=== PATIENT | male | born 1960 | race Caucasian/White ===

== ENCOUNTER 2019-10-27 17:00 | Inpatient (IN) | payer OTHER ==
[~2019-10-27] VITALS: Ht 180.3 cm; Wt 56.2 kg
[2019-10-27 17:03] VITALS: BP 118/68
--- NOTE | 2019-10-27 17:03 | NUR ---
Patient BIBA BLS, transferred to bed 7. RN evaluating patient at bedside.
[2019-10-27] MEDS ORDERED: DIAZ10TA7 PO (17:33)
[2019-10-27] MEDS ORDERED: EREN70AU SQ (17:33)
[2019-10-27] MEDS ORDERED: OXYC30TE PO (17:33)
[2019-10-27] MEDS ORDERED: ONDA4TAB PO (17:33)
[2019-10-27] MEDS ORDERED: EPIN0.3S IJ (17:33)
[2019-10-27] MEDS ORDERED: NALO25TA PO (17:33)
[2019-10-27] MEDS ORDERED: MEGE40SU1 PO (17:33)
[2019-10-27] MEDS ORDERED: LACO150T PO (17:33)
[2019-10-27] MEDS ORDERED: [UNRECOGNIZED DRUG - CODE] PO (17:33)
[2019-10-27] MEDS ORDERED: DOCU-299 PO (17:33)
[2019-10-27] MEDS ORDERED: LAM25 PO ×2 (17:33→21:02)
[2019-10-27] MEDS ORDERED: DEXL60EC PO (17:33)
[2019-10-27] MEDS ORDERED: NAPH15SO OP (17:33)
[2019-10-27] MEDS ORDERED: VITA1TAB44 PO (17:33)
[2019-10-27] MEDS ORDERED: LUBI24SG4 PO (17:33)
[2019-10-27] MEDS ORDERED: ACET-5636 PO (17:33)
[2019-10-27] MEDS ORDERED: DULO30EC PO ×2 (17:33)
[2019-10-27] MEDS ORDERED: MODA100T29 PO (17:33)
[2019-10-27] MEDS ORDERED: FIO PO (17:33)
--- NOTE | 2019-10-27 17:34 | NUR ---
brought in by ems from [facility] pt c/o frontal lobe headache with dizziness and nausea ; denies recent injury full clear speech, moving all extremities equally, no facial asymmetry noted
[2019-10-27] MEDS ORDERED: ONDANSETRON 4 MG/2 ML VIAL IVP ONE (18:00)
[2019-10-27] MEDS ORDERED: ASPIRIN 81 MG TAB.CHEW PO ONE (18:00)
[2019-10-27] MEDS ORDERED: fentaNYL 0.05 MG/ML VIAL IVP ONE (18:00)
[2019-10-27 18:41] LABS: BASOPHILS % (AUTO) 0.2 % (0.0-2.0); EOSINOPHILS # (AUTO) 0.1 K/uL (0-0.4); EOSINOPHILS % (AUTO) 1.3 % (0.0-4.0); HEMATOCRIT 41.6 % (36-52); HEMOGLOBIN 13.8 g/dL (12.0-18.0); LYMPHOCYTES # (AUTO) 2.2 K/uL (2.0-11.5); LYMPHOCYTES % (AUTO) 28.6 % (20.5-51.1); MEAN CORPUSCULAR HEMOGLOBIN 33 pg (27-31); MEAN CORPUSCULAR HGB CONC 33 g/dL (33-37); MEAN CORPUSCULAR VOLUME 99.1 fL (80-94); MONOCYTES # (AUTO) 0.4 K/uL (0.8-1.0); MONOCYTES % (AUTO) 5.3 % (1.7-9.3); NEUTROPHILS # (AUTO) 4.9 K/uL (1.8-7.7); NEUTROPHILS % (AUTO) 64.6 % (42.2-75.2); PLATELET COUNT (AUTO) 273 K/uL (140-450); RED BLOOD CELL COUNT(AUTO) 4.19 MIL/uL (4.20-6.10); RED CELL DISTRIBUTION WIDTH 13.6 % (11.6-13.7); WHITE BLOOD COUNT (AUTO) 7.6 K/uL (4.8-10.8)
[2019-10-27 18:44] LABS: APPEARANCE,URINE CLEAR (CLEAR); BILIRUBIN,URINE NEGATIVE (NEGATIVE); BLOOD, URINE NEGATIVE (NEGATIVE); COLOR,URINE YELLOW (YELLOW); LEUKOCYTE ESTERASE ,URINE NEGATIVE (NEGATIVE); NITRITE, URINE NEGATIVE (NEGATIVE); UGLUCOSE TRACE (NEGATIVE)
--- NOTE | 2019-10-27 18:45 | NUR ---
PT REPORTING RELIEF OF PAIN RATING 7/10 NOW.
[2019-10-27 18:55] LABS: CARBON DIOXIDE 25.9 mmol/L (21-32); CREATININE 0.8 mg/dL (0.7-1.3); POTASSIUM 3.9 mmol/L (3.5-5.1)
[2019-10-27 19:01] LABS: ALBUMIN 3.6 g/dL (3.4-5.0); TOTAL BILIRUBIN 0.4 mg/dL (0.0-1.0)
[2019-10-27] MEDS ORDERED: ZOLPIDEM 5 MG TAB PO PRN (19:10)
[2019-10-27] MEDS ORDERED: APAP/BUTAL/CAFF 325/50/40 MG 1 TAB PO PRN (19:10)
[2019-10-27] MEDS ORDERED: ONDANSETRON 4 MG/2 ML VIAL IM/IVP PRN (19:10)
[2019-10-27] MEDS ORDERED: NITROGLYCERIN 0.4 MG TAB SL PRN ×2 (19:10→21:05)
[2019-10-27] MEDS ORDERED: LORazepam 2 MG/ML VIAL IM/IVP PRN (19:10)
[2019-10-27] MEDS ORDERED: DOCUSATE SODIUM 100 MG GELCAP PO PRN (19:10)
[2019-10-27] MEDS ORDERED: ACETAMINOPHEN 325 MG TAB PO PRN (19:10)
--- NOTE | 2019-10-27 19:12 | NUR ---
REPORT TO RICHAR MAYO. ALL CARE TRANSFERRED AT THIS TIME.
--- NOTE | 2019-10-27 19:39 | NUR ---
assumed care of patient. alert and oriented. states that headache is better than initial complaint. bed assigned. pt placed on archery instructor [facility]
--- NOTE | 2019-10-27 19:45 | NUR ---
facility where pt resides phoned. PRASHANT Cowart [phone] in house business affairs manager pt external family preservation caseworker Rylee Grant Pt PMD in [address] Kane Nicholson [phone]
--- NOTE | 2019-10-27 19:55 | NUR ---
Pt laying in bed, rr even and unlabored. reports 4/10 tolerable headache at this time, with improvement after meds. Temp 100.6, will endorsed to MST RN.
[2019-10-27 20:00] VITALS: BP 120/48
[2019-10-27] MEDS: NACL 0.9% 1,000 ML IV SCH (20:00)
--- NOTE | 2019-10-27 20:00 | NUR ---
Patient will be admitted to care of Dr Singleton. Admited to Tele. Will go to room 122B. Belongings list completed. Report to Jurgen MCQUEEN.
--- NOTE | 2019-10-27 20:00 | NUR ---
RECEIVED PT FROM ER NURSE. PT CAME IN [facility] AND ABLE TO AMBULATE TO [facility] BED. NO SOB NOTED ON ROOM AIR. RESPIRATION EVEN AND UNLABORED. SKIN INTACT, WARM AND DRY TO TOUCH. DX: CHEST PAIN AND CHRONIC CEPHALGIA. IV SITE IN RAC 20G, PATENT, INTACT, AND ASYMPTOMATIC. MRSA SWAB DONE, VS CHECKED, WITHIN NORMAL RANGE. BED IN LOW POSITION, CALL LIGHT WITHIN REACH.
[2019-10-27 20:21] LABS: MAGNESIUM 1.9 mg/dL (1.8-2.4); PHOSPHORUS 3.7 mg/dL (2.5-4.9); THYROID STIMULATING HORMONE 1.07 uIU/mL (0.34-3.74)
[2019-10-27 20:25] LABS: PROTHROMBIN TIME 9.9 secs (10.8-13.4)
[2019-10-27] MEDS ORDERED: FOLI0.8T PO (21:02)
[2019-10-27 21:11] LABS: BARBITURATE, URINE POS. ng/ml (NEG <=200); BENZODIAZEPINE, URINE POS. ng/mL (NEG <=200); CANNABINOID, URINE NEG. ng/mL (NEG <=50); COCAINE, URINE NEG. ng/mL (NEG <=300); OPIATE, URINE NEG. ng/mL (NEG <=2000); PHENCYCLIDINE SCREEN,URINE NEG. ng/mL (NEG <=25)
[2019-10-27] MEDS ORDERED: KETOROLAC 30 MG/ML VIAL IVP PRN (21:15)
[2019-10-27] MEDS ORDERED: ALBUTEROL SULFATE/IPRATROPIU 3 ML SOL IH PRN (21:15)
[2019-10-27] MEDS: NICOTINE TRANSD SYS 14 MG/24 HR PATCH TD SCH (21:15)
--- NOTE | 2019-10-27 21:35 | NUR ---
PT C/O HEADACHE, GIVEN TYLENOL MD ORDERED. PT TOLERATED WELL.
--- NOTE | 2019-10-27 23:55 | NUR ---
VS CHECKED, WITHIN PT'S BASELINE, WILL CONTINUE TO MONITOR.
[2019-10-28] VITALS: BP 96/50
--- NOTE | 2019-10-28 02:01 | NUR ---
PT SLEEPING IN BED. NO ACUTE DISTRESS NOTED. WILL CONTINUE TO MONITOR.
[2019-10-28 04:00] VITALS: BP 99/53
--- NOTE | 2019-10-28 04:00 | NUR ---
VS CHECKED, WITHIN PT'S BASELINE. BED IN LOW POSITION, CALL LIGHT WITHIN REACH.
[2019-10-28] MEDS ORDERED: ALBUTEROL SULFATE/IPRATROPIU 3 ML SOL IH SCH ×2 (06:00→10:48)
--- NOTE | 2019-10-28 06:40 | NUR ---
PT COUGHING OUT WITH BLOOD. REPORTED TO DR. DIAZ.
--- NOTE | 2019-10-28 07:15 | NUR ---
ENDORSED PT TO DAY SHIFT NURSE. PT IN STABLE CONDITION.
--- NOTE | 2019-10-28 07:20 | NUR ---
RECEIVED PT FROM CHILDHOOD DEVELOPMENT TEACHER NURSEOLIVER, PT IS AWAKE AND LYING ON THE BED, SIDE RAILS ARE UP AND CALL LIGHT WITHIN REACH, IV LINE ON THE RT AC G. 20 WITH NS INFUSING AT 60ML/HR, AOX4, ON ROOM AIR, DENIES PAIN AND NO SIGN OF DISTRESS NOTED. WILL CONTINUE TO MONITOR PT.
[2019-10-28 08:00] VITALS: BP 112/61
[2019-10-28 08:03] LABS: BASOPHILS % (AUTO) 0.4 % (0.0-2.0); EOSINOPHILS # (AUTO) 0.3 K/uL (0-0.4); EOSINOPHILS % (AUTO) 3.9 % (0.0-4.0); HEMATOCRIT 40.9 % (36-52); HEMOGLOBIN 13.6 g/dL (12.0-18.0); LYMPHOCYTES # (AUTO) 2.3 K/uL (2.0-11.5); LYMPHOCYTES % (AUTO) 35.1 % (20.5-51.1); MEAN CORPUSCULAR HEMOGLOBIN 33 pg (27-31); MEAN CORPUSCULAR HGB CONC 33 g/dL (33-37); MEAN CORPUSCULAR VOLUME 98.9 fL (80-94); MONOCYTES # (AUTO) 0.4 K/uL (0.8-1.0); MONOCYTES % (AUTO) 5.9 % (1.7-9.3); NEUTROPHILS # (AUTO) 3.6 K/uL (1.8-7.7); NEUTROPHILS % (AUTO) 54.7 % (42.2-75.2); PLATELET COUNT (AUTO) 256 K/uL (140-450); RED BLOOD CELL COUNT(AUTO) 4.14 MIL/uL (4.20-6.10); RED CELL DISTRIBUTION WIDTH 13.6 % (11.6-13.7); WHITE BLOOD COUNT (AUTO) 6.5 K/uL (4.8-10.8)
[2019-10-28 08:17] LABS: ANION GAP 14.9 (8-16); CREATININE 0.8 mg/dL (0.7-1.3); POTASSIUM 3.9 mmol/L (3.5-5.1)
[2019-10-28] MEDS: NICOTINE TRANSD SYS 14 MG/24 HR PATCH TD SCH (09:00)
[2019-10-28] MEDS ORDERED: LISINOPRIL 5 MG TAB PO SCH (09:00)
[2019-10-28] MEDS ORDERED: METOPROLOL 25 MG TAB PO SCH (09:00)
[2019-10-28] MEDS ORDERED: ASPIRIN 81 MG TAB.CHEW PO SCH ×2 (09:00)
--- NOTE | 2019-10-28 09:08 | NUR ---
PATIENT HAS BEEN SCREENED AND CATEGORIZED HIGH NUTRITION RISK. PATIENT WILL BE SEEN WITHIN 1-2 DAYS OF ADMISSION. 10/28/19-10/29/[address]
[2019-10-28 09:25] LABS: CHOL/HDL RATIO 6.2 (1-4.5)
[2019-10-28] MEDS ORDERED: NON-FORMULARY ITEM (Naloxegol Oxalate (Movantik) 25 MG) PO PRN (10:00)
[2019-10-28] MEDS ORDERED: FOLIC ACID 800 MCG PO SCH (10:00)
[2019-10-28] MEDS ORDERED: OXYCODONE HCL 30 MG PO PRN (10:00)
[2019-10-28] MEDS ORDERED: POLYETHYLENE GLYCOL 17 GM PO SCH (10:00)
[2019-10-28] MEDS ORDERED: NON-FORMULARY ITEM (Oxycodone HCl/Acetaminophen (Percocet 10-325 mg Tablet) 1 TAB) PO PRN (10:00)
[2019-10-28] MEDS ORDERED: ONDANSETRON 4 MG TAB PO PRN (10:00)
[2019-10-28] MEDS ORDERED: MODAFINIL 100 MG PO SCH (10:00)
[2019-10-28] MEDS ORDERED: DEXLANSOPRAZOLE PO SCH (10:00)
[2019-10-28] MEDS ORDERED: MEGESTROL 40 MG TAB PO SCH ×2 (10:00→11:15)
--- NOTE | 2019-10-28 10:44 | NUR ---
Surgical Appliance Fitter Note: Basic Screen: Yes High Risk DC Screen [place]: AYDE Chanel Relationship: Pre-Admission Living Arrangements: Other Other: [facility] - TBI Advance Directive No Physician Orders for Life Sustaining Treatment Form No Discipline: Case Mgt/Social Svcs Tentative Discharge Plan/Destination: Other Other: [facility] - TBI UNIT Will require assistance post discharge: No Referred to Building Construction Contractor: No Tentative Discharge Plan Summary: Patient is a 59-year-old male admitted for chest pain associated with diaphoresis and chronic cephalgia. 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 Patient is a resident of [facility], a intermediate frame tender care facility for TBI patients only. SW contacted Sofya, case hardener of [facility] [phone]. Per Sofya, patient was at an outpatient appointment with Dr. Maximo Leung and complained of chest pain. Dr. Maximo Leung called ambulance and brought patient to [facility]. Sofya stated that patient is expected back at the facility after discharge and will be picked up by facility. No further needs identified. Signature: RUSSELL Epps Date: Oct 28, 2019 Time: 10:41
[2019-10-28] MEDS ORDERED: DULoxetine 30 MG CAPDR PO SCH ×2 (10:46→21:00)
[2019-10-28] MEDS ORDERED: PANTOPRAZOLE 40 MG TABEC PO SCH (10:49)
[2019-10-28] MEDS: NACL 0.9% 1,000 ML IV SCH (11:46)
[2019-10-28 12:00] VITALS: BP 107/63
[2019-10-28] MEDS: APAP/BUTAL/CAFF 325/50/40 MG 1 TAB PO SCH ×2 (12:45→16:33)
--- NOTE | 2019-10-28 12:45 | NUR ---
FIORICET NOT DUE YET, LAST DOSE GIVEN AT 1012.
[2019-10-28] MEDS ORDERED: NAPHAZOLINE HCL OP SCH (13:00)
[2019-10-28] MEDS ORDERED: PHENIRAMINE OP SCH (13:00)
--- NOTE | 2019-10-28 13:06 | NUR ---
10/28/19 RD INITIAL ASSESSMENT COMPLETED PLEASE REFER TO NUTRITION ASSESSMENT UNDER CARE ACTIVITY FOR ESTIMATED NUTRITIONAL NEEDS. 1. RECOMMEND MECH SOFT CARDIAC DIET TOLERATED 2. RECOMMEND ENSURE TID 3. RECOMMEND SWALLOW EVALUATION 4. RD TO FOLLOW-UP 2-3 DAYS, HIGH RISK LORE BLAKE, RD
--- NOTE | 2019-10-28 13:21 | NUR ---
PATIENT REFUSED ECHO AT THIS TIME, STATED THAT HE DOESNT FEEL COMFORTABLE MAKING THE DECISION HIMSELF AND WANTS HIS TO MAKE THAT DECISION. NOTIFIED RICHAR PICHARDO. WILL TRY AGAIN LATER
--- NOTE | 2019-10-28 14:00 | NUR ---
PATIENT REFUSED TO HAVE A CT OF THE CHEST DONE. VERBALIZED HE WANTED TO LEAVE AMA. WILL NOTIFY
[2019-10-28 16:00] VITALS: BP 127/90
--- NOTE | 2019-10-28 16:15 | NUR ---
PATIENT SWALLOW EVALUATION DONE BY RICKY. RECOMMENDING MECHANICAL SOFT, THIN LIQUIDS. AIRYASMANI SAID THAT THE PATIENT SWALLOWED THE CRACKERS WELL.
--- NOTE | 2019-10-28 16:33 | NUR ---
GIVEN FIORICET PO. EDUCATED PATIENT ON THE PURPOSE AND SIDE EFFECTS. VERBALIZED UNDERSTANDING. PATIENT VERBALIZED WANTING TO LEAVE AMA. WILL NOTIFY
--- NOTE | 2019-10-28 16:35 | NUR ---
TRANSPORT FROM [facility] CAME TO STRINGS TEACHER THE PATIENT. DR. DIAZ SPOKE TO THE PATIENT REGARDING THE RISKS OF LEAVING AMA. PATIENT VERBALIZED UNDERSTANDING OF THE RISKS.
--- NOTE | 2019-10-28 16:39 | NUR ---
* ST NOTE * Pt seen at bedside after receiving clearance from Connie Colon. Pt asleep upon entering room. Upon awakening, pt alert but moderately cooperative, reporting c/o headache at this time. Bedside dysphagia and oral mechanism exams completed. See evaluation report for further details. Pt tolerating 3/3 alternating PO trials of regular solid saltine crackers as well as 4/4 alternating successive sips of thin liquid water via a cup, all w/o s/s of aspiration. Pt also reporting no c/o pain during swallow or after PO intake at this time. Pt however stating he "cannot eat" because he will "just vomit it back up anyway". Pt also preferring whole pill medication, currently requesting pain medication at this time, w/nsg informed of pt's request. Pt and nsg Darlene education completed re: aspiration precautions and safe swallow compensatory strategies pt and caregivers could utilize to aid pt w/swallow function, w/pt indifferent but following through as trained, and nsg Darlene verbalizing understanding and agreement w/clinician's recommendations. Although pt can safely tolerate regular solids w/thin liquids at this time, pt's dentures are not present here at [facility]. It is thus recommended pt's PO diet consistency remain as mechanical soft textures w/thin liquids w/aspiration precautions in place. No further ST follow up recommended at this time. Pt and caregiver/Nsg Darlene education completed re: results of evaluation; benefits of abiding by aspiration precautions and recommended PO diet consistency; and prognosis for improvement; with pt verbalizing understanding and caregiver/nsg Darlene verbalizing understanding and agreement w/clinician's recommendations. Recommend: - CONTINUE PO DIET CONSISTENCY OF MECHANICAL SOFT-CHOPPED TEXTURES W/THIN LIQUIDS for all meals - WHOLE PILL PO MEDICATION ADMINISTRATION - Pt can feed self - MAINTAIN STRICT ASPIRATION PRECAUTIONS DURING PT'S PO INTAKE 2/2 TO TBI - CUE/REMIND PT TO SIT UP AT 80-90 DEGREE ANGLE DURING PO INTAKE; EAT/DRINK SLOWLY; ALTERNATE BTWN SOLIDS & LIQUIDS; AND TAKE SMALL BITES/SIPS No further ST follow up recommended at this time. NOMS Level 2 Time In/Out 16:05 - 16:35
[2019-10-28 16:55] VITALS: BP 123/89
--- NOTE | 2019-10-28 16:55 | NUR ---
SIGNED AMA PAPERWORK AND LEFT DESPITE THE ADVICE AND TEACHINGS MADE BY DR DIAZ ON THE RISKS ON LEAVING AMA, BUT PATIENT IS PERSISTENT TO LEAVE AMA. IV REMOVED AND BELONGINGS RETURNED TO THE PATIENT. PATIENT LEFT UNIT ON FOOT ALONG WITH TRANSPORT FROM [facility].
[2019-10-28] MEDS ORDERED: DIAZEPAM 5 MG TAB PO SCH (21:00)
[2019-10-28] MEDS ORDERED: LUBIPROSTONE PO SCH (21:00)
[2019-10-28] MEDS ORDERED: DOCUSATE SODIUM 100 MG GELCAP PO SCH (21:00)
[2019-10-28] MEDS ORDERED: NON-FORMULARY ITEM (Lacosamide (Vimpat) 150 MG) PO SCH (21:00)
[2019-10-28] MEDS ORDERED: ATORVASTATIN 20 MG TAB PO SCH (21:00)
[2019-10-29] MEDS ORDERED: PANTOPRAZOLE 40 MG TABEC PO SCH (07:30)
[2019-10-29] MEDS ORDERED: POLYETHYLENE GLYCOL 17 GM/PKT PO SCH (09:00)
[2019-10-29] MEDS ORDERED: DULoxetine 30 MG CAPDR PO SCH (09:00)
[2019-11-27] MEDS ORDERED: ERENUMAB AOOE 70 MG SQ SCH (09:00)
== END 2019-10-28 15:55 | disposition left against medical advice (07) | DRG 880 ==
LOC: MED 17:00 → MTU 19:13
PROVIDERS: ADMIT General Practice; ATTEND General Practice
DX: F41.9 Anxiety disorder, unspecified (principal); R64 Cachexia; Z68.1 Body mass index [BMI] 19.9 or less, adult; I24.9 Acute ischemic heart disease, unspecified; G43.909 Migraine, unspecified, not intractable, without status migrainosus; G44.209 Tension-type headache, unspecified, not intractable; G40.909 Epilepsy, unspecified, not intractable, without status epilepticus; F32.9 Major depressive disorder, single episode, unspecified; K21.9 Gastro-esophageal reflux disease without esophagitis; J44.9 Chronic obstructive pulmonary disease, unspecified; K58.1 Irritable bowel syndrome with constipation; H11.439 Conjunctival hyperemia, unspecified eye; R13.10 Dysphagia, unspecified; K59.03 Drug induced constipation; T40.2X5A Adverse effect of other opioids, initial encounter; F17.200 Nicotine dependence, unspecified, uncomplicated; Z88.5 Allergy status to narcotic agent; Z88.1 Allergy status to other antibiotic agents; Z91.030 Bee allergy status; Z79.899 Other long term (current) drug therapy; Z86.73 Personal history of transient ischemic attack (TIA), and cerebral infarction without residual deficits; Y92.89 Other specified places as the place of occurrence of the external cause
CPT/HCPCS: 36415; 71045; 80048; 80053; 80305; 81003; 82150; 83036; 83690; 83735; 83880; 84100; 84134; 84436; 84443; 84484; 85025; 85610; 85730; 87081; 92610; 93005; 96374; 96375; 99285; J1885; J2405; J3010; J7620; Q0092